=== PATIENT | male | born 2000 | race Two or more races ===

== ENCOUNTER 2024-12-05 16:52 | Emergency (ER) | payer MEDICAID, OTHER ==
[~2024-12-05] VITALS: Ht 177.8 cm; Wt 77.5 kg
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
[2024-12-05] MEDS ORDERED: IBUP-1455 PO (19:31)
[2024-12-05] MEDS ORDERED: ACET500T58 PO (19:31)
[2024-12-05 20:56] VITALS: BP 127/66; PULSE 72; RESP 18; TEMP 98.1; O2SAT 98
[2024-12-05] MEDS: HYDROcodone-ACET 10/325MG TAB PO ONE (20:58)
== END 2024-12-05 20:59 | disposition home or self-care (01) ==
LOC: EDBD 16:52 → ER 16:57
DX: S20.211A Contusion of right front wall of thorax, initial encounter (principal); V49.40XA Driver injured in collision with unspecified motor vehicles in traffic accident, initial encounter; Y93.89 Activity, other specified; Y92.410 Unspecified street and highway as the place of occurrence of the external cause; Y99.8 Other external cause status
CPT/HCPCS: 71101